=== PATIENT | female | born 1990 | race Caucasian/White ===

== ENCOUNTER 2022-07-25 16:17 | Inpatient (IN) | payer OTHER ==
[2022-07-25] MEDS ORDERED: Bicitra 30 ML UDCUP PO PRN (16:27)
[2022-07-25] MEDS ORDERED: hydrALAZINE 20 MG/ML VIAL SLOW IVP PRN (16:27)
[2022-07-25] MEDS ORDERED: Acetaminophen 500 MG TAB PO PRN (16:27)
[2022-07-25] MEDS ORDERED: Calcium Gluc 4.6 MEQ/10 ML (100 MG/ML) SLOW IVP PRN ×2 (16:27→17:11)
[2022-07-25] MEDS ORDERED: Promethazine HCl 25 MG/ML VIAL IM PRN ×2 (16:27→18:45)
[2022-07-25] MEDS ORDERED: Butorphanol Tartrate 1 MG/ML VIAL SLOW IVP PRN (16:27)
[2022-07-25] MEDS ORDERED: Lorazepam 2 MG/ML VIAL SLOW IVP PRN ×2 (16:27→17:11)
[2022-07-25] MEDS ORDERED: Famotidine/PF 20 mg/2ml Vial SLOW IVP PRN (16:27)
[2022-07-25] MEDS ORDERED: Ondansetron PF 4 MG/2 ML Vial IVP PRN ×2 (16:27→18:45)
[2022-07-25] MEDS ORDERED: CEFAZOLIN 2 GM in Sodium Chloride 0.9% 100 ML IVPB SCH (16:30)
[2022-07-25 16:56] VITALS: BMI 21.4
[2022-07-25] MEDS ORDERED: Labetalol HCl 100 MG/20 ML VIAL ONE (17:10)
[2022-07-25] MEDS ORDERED: Labetalol HCl 100 MG/20 ML VIAL SLOW IVP PRN ×3 (17:11)
[2022-07-25 17:23] LABS: Hemoglobin 12.3 g/dL (12.0-15.5); Mean Corpuscular HGB CONC 34.6 g/dL (32.0-36.0); Mean Corpuscular Hemoglobin 30.8 pg (27.0-33.0); Mean Corpuscular Volume 89.2 fl (81.6-98.3); Mean Platelet Volume 10.7 fl (7.4-10.4); Platelet Count 251 10x3/uL (150-450); RBC Distribution Width 13.3 % (11.5-14.5); Red Blood Cell (RBC) Count 3.99 10x6/uL (3.90-5.03)
[2022-07-25] MEDS ORDERED: Morphine 4 MG/ML VIAL ONE (17:29)
[2022-07-25] MEDS ORDERED: Oxytocin 10 UNITS/ML VIAL ONE (17:30)
[2022-07-25] MEDS ORDERED: PHENYLEPHRINE-NS 100 MCG/ML 10 ML SYRINGE ONE (17:30)
[2022-07-25] MEDS ORDERED: Ondansetron PF 4 MG/2 ML Vial ONE (17:30)
[2022-07-25] MEDS ORDERED: Dexamethasone 4 mg/ml Vial ONE ×2 (17:30→18:01)
[2022-07-25 17:37] LABS: ALT (SGPT) 14 U/L (8-55); AST (SGOT) 19 U/L (5-34); Albumin 3.8 g/dL (3.5-5.0); Alkaline Phosphatase 154 U/L (40-110); Anion Gap 17 mmol/L (10-20); BUN (Urea Nitrogen) 20 mg/dL (7.0-18.7); Bilirubin, Total 0.3 mg/dL (0.2-1.2); Calc. Creatinine Clearance 55 mL/min (70-130); Calcium 9.5 mg/dL (7.8-10.44); Carbon Dioxide 19 mmol/L (22-29); Chloride 104 mmol/L (98-107); Estimated GFR 57; Globulin 4.3 g/dL (2.4-3.5); Glucose 73 mg/dL (70-105); Potassium 4.2 mmol/L (3.5-5.1); Protein, Total 8.1 g/dL (6.0-8.3); Sodium 136 mmol/L (136-145)
[2022-07-25 17:57] LABS: HBSAg Index 0.21 S/CO (0-0.99); Hep B Surf Ag Non-Reactive S/CO (NonReactive); Syphilis Antibody Nonreactive (Nonreactive); Syphilis Antibody Index 0.08 S/CO (<1.00 Non-Reactive)
[2022-07-25] MEDS ORDERED: Fentanyl 100 MCG/2 ML VIAL ONE ×3 (18:07→19:42)
[2022-07-25] MEDS ORDERED: Midazolam HCl 2 mg/2 ml Vial ONE (18:08)
[2022-07-25] MEDS ORDERED: Fentanyl 100 MCG/2 ML VIAL SLOW IVP PRN (18:45)
[2022-07-25] MEDS ORDERED: Promethazine HCl 25 MG SUPP PR PRN (18:45)
[2022-07-25] MEDS ORDERED: Naloxone HCl 0.4 mg/ml Vial IV PRN (18:45)
[2022-07-25] MEDS ORDERED: Communication Order-Pharmacy FS SCH (18:45)
[2022-07-25] MEDS ORDERED: diphenhydrAMINE 50 MG/ML VIAL IVP PRN (18:45)
[2022-07-25] MEDS ORDERED: Moisturizing Cream (Eucerin) 113 GM JAR TOP PRN (18:45)
[2022-07-25] MEDS ORDERED: Naloxone HCl 0.4 mg/ml Vial IVP PRN ×2 (18:45)
[2022-07-25] MEDS ORDERED: Ondansetron HCl/PF 4 MG/2 ML Vial IVP PRN (18:45)
[2022-07-25] MEDS ORDERED: Magnesium Sulfate 20 gm/500 ml 20 GM/500 ML BAG ONE (18:51)
[2022-07-25] MEDS ORDERED: Magnesium Sulfate 20 gm/500 ml 2 GM/50 ML BAG IVPB SCH (19:00)
[2022-07-25] MEDS: Magnesium Sulfate 20 gm/500 ml 20 GM/500 ML BAG IVPB SCH (19:01)
[2022-07-25 20:41] LABS: SARS-CoV-2 NAA Rapid Test Not Detected (NotDetected)
[2022-07-25] MEDS: hydrALAZINE 20 MG/ML VIAL SLOW IVP PRN ×2 (20:52→21:23)
[2022-07-25] MEDS ORDERED: NIFEdipine XL 30 MG TAB PO SCH (21:00)
[2022-07-25 23:53] LABS: Magnesium 1.9 mg/dL (1.6-2.6)
[2022-07-26 04:23] LABS: RapidComm Collect By CBN; pH (Cord, venous) 7.337 (7.250-7.350)
[2022-07-26 05:55] LABS: Hemoglobin 9.9 g/dL (12.0-15.5); Mean Corpuscular HGB CONC 34.4 g/dL (32.0-36.0); Mean Corpuscular Hemoglobin 30.9 pg (27.0-33.0); Mean Platelet Volume 10.6 fl (7.4-10.4); Platelet Count 203 10x3/uL (150-450); RBC Distribution Width 13.3 % (11.5-14.5); White Blood Cell (WBC) Count 22.2 10x3/uL (3.5-10.5)
[2022-07-26 06:20] LABS: ALT (SGPT) 11 U/L (8-55); AST (SGOT) 21 U/L (5-34); Albumin 2.7 g/dL (3.5-5.0); Alkaline Phosphatase 103 U/L (40-110); Anion Gap 14 mmol/L (10-20); BUN (Urea Nitrogen) 15 mg/dL (7.0-18.7); Bilirubin, Total 0.3 mg/dL (0.2-1.2); Calc. Creatinine Clearance 74 mL/min (70-130); Calcium 8.4 mg/dL (7.8-10.44); Carbon Dioxide 20 mmol/L (22-29); Chloride 103 mmol/L (98-107); Estimated GFR 83; Globulin 3.6 g/dL (2.4-3.5); Glucose 104 mg/dL (70-105); Potassium 4.1 mmol/L (3.5-5.1); Protein, Total 6.3 g/dL (6.0-8.3); Sodium 133 mmol/L (136-145)
[2022-07-26] MEDS ORDERED: HYDROcodone/Acetaminophen 5/325 mg Tablet PO PRN (08:24)
[2022-07-26] MEDS: Labetalol HCl 100 MG TAB PO SCH ×2 (09:06→22:04)
[2022-07-26] MEDS: NIFEdipine XL 60 MG TAB PO SCH (09:06)
[2022-07-26] MEDS: Magnesium Sulfate 20 gm/500 ml 20 GM/500 ML BAG IVPB SCH (12:01)
[2022-07-26] MEDS: Lactated Ringer's 1,000 ML IV SCH (12:02)
[2022-07-26] MEDS: HYDROcodone/Acetaminophen 5/325 mg Tablet PO PRN (20:45)
[2022-07-27] MEDS: HYDROcodone/Acetaminophen 5/325 mg Tablet PO PRN ×4 (05:33→19:09)
[2022-07-27] MEDS: Lactated Ringer's 1,000 ML IV SCH ×4 (06:37→17:18)
[2022-07-27] MEDS: NIFEdipine XL 60 MG TAB PO SCH (09:18)
[2022-07-27] MEDS: Labetalol HCl 100 MG TAB PO SCH ×2 (09:18→22:14)
[2022-07-28] MEDS: HYDROcodone/Acetaminophen 5/325 mg Tablet PO PRN ×2 (05:28→13:43)
[2022-07-28] MEDS: Lactated Ringer's 1,000 ML IV SCH ×2 (08:01→09:16)
[2022-07-28] MEDS: Labetalol HCl 100 MG TAB PO SCH (09:18)
[2022-07-28] MEDS: NIFEdipine XL 60 MG TAB PO SCH (09:19)
[2022-07-28 11:25] VITALS: BP 141/89; TEMP 98.7
== END 2022-07-28 14:20 | disposition home or self-care (01) | DRG 787 ==
LOC: CSHLD 16:17 → CSHANTE 07-26 10:39
PROVIDERS: ADMIT Obstetrics & Gynecology; ATTEND Obstetrics & Gynecology
PROC: 10D00Z1 Extraction of Products of Conception, Low, Open Approach (ICD-10-PCS; principal; 2022-07-25)
DX: O11.4 Pre-existing hypertension with pre-eclampsia, complicating childbirth (principal); Z94.0 Kidney transplant status; O34.211 Maternal care for low transverse scar from previous cesarean delivery; Z3A.35 35 weeks gestation of pregnancy; Z37.0 Single live birth; Z20.822 Contact with and (suspected) exposure to COVID-19; I12.9 Hypertensive chronic kidney disease with stage 1 through stage 4 chronic kidney disease, or unspecified chronic kidney disease; N18.9 Chronic kidney disease, unspecified; O10.22 Pre-existing hypertensive chronic kidney disease complicating childbirth; N73.6 Female pelvic peritoneal adhesions (postinfective); O99.892 Other specified diseases and conditions complicating childbirth; Z88.8 Allergy status to other drugs, medicaments and biological substances; Z88.2 Allergy status to sulfonamides; O71.03 Rupture of uterus before onset of labor, third trimester
CPT/HCPCS: 36415; 51702; 80053; 82805; 83735; 85027; 86780; 86850; 86900; 86901; 87340; 88307; J0360; J0690; J1100; J1200; J2250; J2270; J2405; J2590; J3010; J3475; J3490; J7120; S0028; U0002